=== PATIENT | male | born 1945 | race Caucasian/White ===

== ENCOUNTER 2017-07-13 21:31 | Inpatient (IN) | payer MEDICARE ==
[~2017-07-13] VITALS: Ht 182.9 cm; Wt 103.9 kg
[2017-07-13 22:00] VITALS: BP 157/97
[2017-07-13] MEDS ORDERED: LORAZEPAM 0.5 MG TABLET PO PRN (22:30)
[2017-07-13] MEDS ORDERED: MAG HYDROX/AL HYDROX/SIMETH 30 ML UDC PO PRN (22:30)
[2017-07-13] MEDS ORDERED: MAGNESIUM HYDROXIDE 30 ML UDC PO PRN (22:30)
[2017-07-13] MEDS ORDERED: ACETAMINOPHEN 325 MG TABLET PO PRN (22:30)
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
[2017-07-14] MEDS ORDERED: ALIR150P SQ (00:23)
[2017-07-14] MEDS ORDERED: TAMS0.4C34 PO (00:23)
[2017-07-14] MEDS ORDERED: CLOP75TA15 PO (00:23)
[2017-07-14] MEDS ORDERED: ALPR0.5T8 PO (00:23)
[2017-07-14] MEDS ORDERED: TOPI100T38 PO (00:23)
[2017-07-14] MEDS ORDERED: ALLO300T2 PO (00:23)
[2017-07-14] MEDS ORDERED: LOSA50TA21 PO (00:23)
[2017-07-14] MEDS ORDERED: LITH300T PO (00:23)
--- NOTE | 2017-07-14 00:25 | NUR ---
PAGED DR. MALIK SIMON, RE: MED RECONCILIATION
--- NOTE | 2017-07-14 05:34 | NUR ---
Spoke to dr. jose conrad around 0100, re: Med Recon, she stated, "I did."
--- NOTE | 2017-07-14 05:53 | NUR ---
PATIENT REFUSED, PERSONAL PHOTO, MED RECONCILIATION AND MRSA SCREEN, PATIENT STATED, " OH COMMON, I DID NOT SLEEP LAST NIGHT, 9 O'CLOCK."
--- NOTE | 2017-07-14 05:56 | NUR ---
PATIENT REFUSED BLOOD DRAW AT THIS TIME.
[2017-07-14 08:34] VITALS: BP 122/74
[2017-07-14 09:23] LABS: BASOPHILS % (AUTO) 0.5 % (0.0-2.0); EOSINOPHILS # (AUTO) 0.2 /CMM (0.0-0.7); EOSINOPHILS % (AUTO) 3.4 % (0.0-6.0); HEMATOCRIT 39 % (39-51); HEMOGLOBIN 13.3 g/dL (13.5-17.5); LYMPHOCYTES # (AUTO) 1.4 /CMM (0.8-4.8); LYMPHOCYTES % (AUTO) 25.1 % (20.0-44.0); MEAN CORPUSCULAR HEMOGLOBIN 33 PG (26.0-33.0); MEAN CORPUSCULAR HGB CONC 34 g/dl (31.0-36.0); MEAN CORPUSCULAR VOLUME 97 fL (80-96); MONOCYTES # (AUTO) 0.3 /CMM (0.1-1.30); MONOCYTES % (AUTO) 5.4 % (2.0-12.0); NEUTROPHILS # (AUTO) 3.6 /CMM (1.8-8.9); NEUTROPHILS % (AUTO) 65.6 % (43.0-81.0); PLATELET COUNT (AUTO) 273 /CMM (150-450); RED BLOOD CELL COUNT(AUTO) 4.01 MIL/uL (4.5-6.0); WHITE BLOOD COUNT (AUTO) 5.5 K/uL (4.3-11.0)
[2017-07-14 09:58] LABS: ALANINE AMINOTRANSFERASE 20 U/L (12-78); ALBUMIN 3.5 g/dL (3.4-5.0); ALKALINE PHOSPHATASE 68 U/L (46-116); ASPARTATE AMINOTRANSFERASE 16 U/L (15-37); BILIRUBIN,TOTAL 0.6 mg/dL (0.2-1.0); CALCIUM, SERUM 8.9 mg/dL (8.5-10.1); CARBON DIOXIDE 20 mmol/L (21-32); CHLORIDE 108 mmol/L (98-107); GLUCOSE 96 mg/dL (74-106); POTASSIUM 3.8 mmol/L (3.5-5.1); SODIUM SERUM 138 mmol/L (136-145); UREA NITROGEN, BLOOD 13 mg/dL (7-18)
[2017-07-14 10:01] LABS: CHOLESTEROL 112 mg/dL (<200); HDL CHOLESTEROL 59 mg/dL (40-60); LDL 48 mg/dL (0-99); TRIGLYCERIDES 79 mg/dL (30-150)
[2017-07-14] MEDS: LITHIUM CARBONATE (300 MG CAP) 300 MG CAPSULE PO SCH ×2 (13:00→17:00)
[2017-07-14] MEDS: QUETIAPINE FUMARATE 25 MG TABLET PO SCH (17:00)
[2017-07-14 19:33] VITALS: BP 141/89
[2017-07-14] MEDS: TOPIRAMATE 100 MG TABLET PO SCH (21:00)
--- NOTE | 2017-07-14 23:05 | NUR ---
GPS RN NOTES PT. REFUSED NIGHT MEDS TOPAMAX 100 MG ENCOURAGED X 3 EXPLIANED RISKS AND BENEFITS, PT. STILL REFUSED
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
[2017-07-15 08:00] VITALS: BP 130/78
[2017-07-15] MEDS: CLOPIDOGREL BISULFATE 75 MG TABLET PO SCH (09:00)
[2017-07-15] MEDS: TOPIRAMATE 100 MG TABLET PO SCH ×2 (09:00→21:00)
[2017-07-15] MEDS: LOSARTAN POTASSIUM 50 MG TABLET PO SCH (09:00)
[2017-07-15] MEDS: ALLOPURINOL 100 MG TABLET PO SCH (09:00)
[2017-07-15] MEDS: LITHIUM CARBONATE (300 MG CAP) 300 MG CAPSULE PO SCH ×4 (09:00→16:37)
[2017-07-15] MEDS: TAMSULOSIN 0.4 MG CAP.SR.24H PO SCH (09:00)
[2017-07-15] MEDS: QUETIAPINE FUMARATE 25 MG TABLET PO SCH ×5 (09:02→21:06)
--- NOTE | 2017-07-15 09:12 | NUR ---
[id number]: PT REFUSED TO TAKE MORNING MEDICATIONS, EVEN THOUGH ENCOURAGE PT TO BE COMPLAINT WITH MEDICATIONS. PT STILL REFUSED TO TAKE MEDICATIONS OR BE SEEN BY A WOUND NURSE.
--- NOTE | 2017-07-15 10:26 | NUR ---
[id number]: NOTIFIED DR. GRANADO THAT PT IS COMPLAINING OF LEFT CLAVICLE PAIN AND DISCOMFORT. DR. GRANADO ORDERED X-RAY OF LEFT CLAVICLE.
[2017-07-15] MEDS ORDERED: LITHIUM CARBONATE (300 MG CAP) 300 MG CAPSULE PO ONE (10:30)
--- NOTE | 2017-07-15 11:57 | NUR ---
[id number]: NOTIFIED DR. GRANADO ABOUT X-RAY OF LEFT CLAVICLE: NO ACUTE BONY ABNORMALITY AND MILD TO MODERATE OSTEOARTHROSIS OF THE ACROMIOCLAVICULAR JOINT. PENDING RETURN PHONE CALL.
[2017-07-15 16:00] VITALS: BP 146/81
--- NOTE | 2017-07-15 16:27 | NUR ---
Initial Discharge Note: Patient [place] [address] and wishes to return upon discharge. SW spoke with patient's , Claire Morales [phone]. Claire stated that she had concerns about patient returning home and that she has a pending restraining order against patient. However, Claire stated that if patient is stable and is compliant with medication, then she will discontinue the order. Claire stated that, ultimately, she does want patient home. SW to follow up with MD and to form a safe and proper discharge.
[2017-07-15 19:52] VITALS: BP 132/80
--- NOTE | 2017-07-15 20:44 | NUR ---
GPS RN NOTES PT. REFUSED SKIN REASSESSMENT AND BODY CHECK ENCOURAGED X 3 EXPLIANED RISKS AND BENEFITS, PT. STILL REFUSED
[2017-07-15] MEDS: ZOLPIDEM TARTRATE 5 MG TABLET PO PRN (21:49)
--- NOTE | 2017-07-15 22:00 | NUR ---
GPS RN NOTES PT. REFUSED NIGHT MEDS TOPAMAX 100 MG ENCOURAGED X 3 EXPLIANED RISKS AND BENEFITS, PT. STILL REFUSED
[2017-07-16 07:52] VITALS: BP 120/78
[2017-07-16] MEDS: LOSARTAN POTASSIUM 50 MG TABLET PO SCH (08:40)
[2017-07-16] MEDS: TOPIRAMATE 100 MG TABLET PO SCH (08:42)
[2017-07-16] MEDS: QUETIAPINE FUMARATE 25 MG TABLET PO SCH ×4 (08:42→21:14)
[2017-07-16] MEDS: TAMSULOSIN 0.4 MG CAP.SR.24H PO SCH (08:42)
[2017-07-16] MEDS: LITHIUM CARBONATE (300 MG CAP) 300 MG CAPSULE PO SCH ×3 (08:42→16:28)
[2017-07-16] MEDS: CLOPIDOGREL BISULFATE 75 MG TABLET PO SCH (08:42)
--- NOTE | 2017-07-16 08:42 | NUR ---
[id number]: PT REFUSED TO TAKE COZAAR 50 MG, FLOMAX 0.4 MG, PLAVIX 75 MG, ALLOPURINOL 300 MG. EVEN AFTER ENCOURAGE PT TO TAKE 3X AND EXPLAINED BENEFITS AND RISK, PT STILL REFUSED.
[2017-07-16] MEDS: ALLOPURINOL 100 MG TABLET PO SCH (08:44)
--- NOTE | 2017-07-16 09:39 | NUR ---
[id number]: NOTIFIED DR. GRANADO ABOUT PT'S REQUEST TO CHANGE DIET FROM CARDIAC DIET TO REGULAR DIET BECAUSE PT STATED, "I LOST 70 POUND AND NO LONGER HYPERTENSIVE." DR. GRANADO ORDERED REGULAR DIET
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
--- NOTE | 2017-07-16 10:23 | NUR ---
Discharge Planning: RICKY received a voicemail from patient's , Claire Morales [phone]. SW called Claire back and informed her that patient signed a voluntary stay form. SW explained the nature of the voluntary stay to patient's . was in agreement, but expressed that she wanted patient to stay for a couple of weeks. SW explained that, because patient is voluntary, he could leave at any time. However, it would be against medical advice and that the treatment team [psychiatrist, psychologist, nurse staff, social media strategist] have made several recommendations for patient to stay for at least a week. SW stated that it is a good sign that patient has signed the voluntary stay paperwork and that, right now, it has to be taken day by day. stated that she understood.
--- NOTE | 2017-07-16 10:58 | NUR ---
[id number]: DR. GRANADO ORDERED PHYSICIAN CONSULT FOR DR. HENRY TO SEE FOREHEAD HEALED WOUND. DR. GRANADO WILL CALL DR. HENRY.
--- NOTE | 2017-07-16 11:41 | NUR ---
[id number]: NOTIFIED DR. SONI FOR PHYSICIAN CONSULT PLACED BY DR. ROCKWELL DUE TO NEW EPISODES OF MANIC.
[2017-07-16 16:00] VITALS: BP 120/78
--- NOTE | 2017-07-16 19:30 | NUR ---
GPS RN NOTE, RECEIVED PATIENT AWAKE AND IN BED, NO S/S OR COMPLAINTS OF PAIN AT THIS TIME. PATIENT IS DISPLAYING NO S/S OF APPARENT DISTRESS AT THIS TIME. PATIENT BREATHING IS UNLABORED WITH EQUAL RISE AND FALL OF THE CHEST. PATIENT IS ALERT AND ORIENTED X 4 ON ROOM AIR WITH A SPO2 98 %. PATIENT IS MED SELECTIVE, DISORGANIZED, ANXIOUS, DEMANDING, AND NEEDS REORIENTATION. PATIENT DENIES SUICIDE IDEATIONS AND HOMICIDAL IDEATIONS AT THIS TIME. PATIENT ASSISTED WITH TURNING AND REPOSITIONING Q2HR AND PRN FOR COMFORT AND CIRCULATION. PATIENT HAS NO NEEDS AT THIS TIME. PATIENT EDUCATED ON THE USE OF THE CALL [place]. PATIENT BED SIDE RAILS ARE UP X 2 FOR SAFETY, BED IS LOCKED AND LOW WILL CONTINUE TO MONITOR Q 15 MIN AND MAINTAIN SAFETY WITH THE HELP OF STAFF.
[2017-07-16 19:51] VITALS: BP 146/86
[2017-07-16] MEDS: ZOLPIDEM TARTRATE 5 MG TABLET PO PRN (21:15)
--- NOTE | 2017-07-16 21:15 | NUR ---
GPS RN NOTE, PATIENT HAS A COMPLAINT OF NOT BEING ABLE TO SLEEP AND IS REQUESTING AMBIEN AT THIS TIME. PATIENT VITAL SIGNS ARE STABLE. GAVE AMBIEN 5MG PO HS ORDERED. WILL REASSESS FOR INSOMNIA AND I WILL CONTINUE TO MONITOR THIS PATIENT.
[2017-07-17 08:00] VITALS: BP 124/84
[2017-07-17] MEDS: CLOPIDOGREL BISULFATE 75 MG TABLET PO SCH (09:10)
[2017-07-17] MEDS: QUETIAPINE FUMARATE 25 MG TABLET PO SCH ×2 (09:10→21:02)
[2017-07-17] MEDS: TAMSULOSIN 0.4 MG CAP.SR.24H PO SCH (09:10)
[2017-07-17] MEDS: LOSARTAN POTASSIUM 50 MG TABLET PO SCH (09:11)
[2017-07-17] MEDS: ALLOPURINOL 100 MG TABLET PO SCH (09:11)
[2017-07-17] MEDS: LITHIUM CARBONATE (300 MG CAP) 300 MG CAPSULE PO SCH ×3 (09:11→17:32)
[2017-07-17 16:00] VITALS: BP 122/76
--- NOTE | 2017-07-17 18:34 | NUR ---
GPS/RN-NOTES PATIENT C/O GENERALIZED BODY PAIN AND REQUESTING FOR TYLENOL, TYLENOL 650MG P.O GIVEN PRN ORDER WILL CONT. MOTORING FOR SAFETY.
[2017-07-17 20:07] VITALS: BP 143/90
[2017-07-17] MEDS: ZOLPIDEM TARTRATE 5 MG TABLET PO PRN (22:09)
--- NOTE | 2017-07-18 07:14 | NUR ---
GPS RN NOTES PT. REFUSED AM LABS , PER PT. MAY LATER, ENDORSE TO COMING SHIFT FOR CONTINUITY OF CARE.
[2017-07-18 08:00] VITALS: BP 130/80
[2017-07-18] MEDS ORDERED: QUETIAPINE FUMARATE 25 MG TABLET PO SCH (09:00)
[2017-07-18] MEDS: ALLOPURINOL 100 MG TABLET PO SCH (10:18)
[2017-07-18] MEDS: LOSARTAN POTASSIUM 50 MG TABLET PO SCH (10:18)
[2017-07-18] MEDS: TAMSULOSIN 0.4 MG CAP.SR.24H PO SCH (10:18)
[2017-07-18] MEDS: CLOPIDOGREL BISULFATE 75 MG TABLET PO SCH (10:19)
[2017-07-18] MEDS: LITHIUM CARBONATE (300 MG CAP) 300 MG CAPSULE PO SCH ×3 (10:19→16:29)
--- NOTE | 2017-07-18 13:01 | NUR ---
GPS/RN PATIENT WAS SEEN BY ORTEGA CADET 07/17/17 HOWEVER, PATIENT IS STATING THAT HE WOULD LIKE TO SEE DR HENRY, SPOKE WITH SANITARY AIDE AT DR HENRY'S OFFICE REGARDING REQUEST, AWAITING CALL BACK.
--- NOTE | 2017-07-18 14:34 | NUR ---
Discharge Planning: RICKY received a voicemail from patient's Claire Morales [phone]. Claire stated that she wanted an updated on her . RICKY called and spoke with patient's Claire Morales [phone]. SW provided updates on patient and informed Claire that the discharge was planned for Saturday.
[2017-07-18 15:41] VITALS: BP 122/80
[2017-07-18 20:00] VITALS: BP 109/73
[2017-07-18] MEDS: QUETIAPINE FUMARATE 25 MG TABLET PO SCH (21:02)
--- NOTE | 2017-07-18 21:13 | NUR ---
, BRYAN CALLED, PATIENT HAS GONE SLEEPING AT THIS TIME, LIGHTS OFF INSIDE HIS ROOM, DOOR CLOSED. KEPT THE DOOR AJAR.
[2017-07-19 08:00] VITALS: BP 120/83
[2017-07-19] MEDS: LITHIUM CARBONATE (300 MG CAP) 300 MG CAPSULE PO SCH ×2 (08:29→13:00)
[2017-07-19] MEDS: TAMSULOSIN 0.4 MG CAP.SR.24H PO SCH (08:30)
[2017-07-19] MEDS: ALLOPURINOL 100 MG TABLET PO SCH (08:30)
[2017-07-19] MEDS: LOSARTAN POTASSIUM 50 MG TABLET PO SCH (08:30)
[2017-07-19] MEDS: CLOPIDOGREL BISULFATE 75 MG TABLET PO SCH (08:30)
--- NOTE | 2017-07-19 11:41 | NUR ---
Discharge Note: Patient to discharge home to [address] [place] [address]. Patient to be picked up by personal security specialist. Patients Claire [phone] is aware of the discharge. Upon discharge, patient is alert and oriented x4. Patient denies visual and auditory hallucinations. Patient denies any suicidal and homicidal ideation. Patient states that he is glad to be going home with his . Patient will follow up with his patient transporter, Dr. Liu [address], [place] [address] / [phone]. Patient will also see a psychiatrist and psychologist at [facility] [address], [place] . Patient requested this particular organization, as he had worked with them before. Patients confirmed this. SW called and left a voicemail in an attempt to confirm an appointment day for patient. Patient stated that he will also call and make his appointment. Patients agreed to help him in doing this.
[2017-07-19 13:00] VITALS: BP 118/68
--- NOTE | 2017-07-19 13:18 | NUR ---
pt is discharge by Dr. Manrique. Urologic Surgeon agrees with discharge plan. Pt going home. Pt's , Claire, is aware. Pt is alert oriented x 3 and ambulatory. he is calm and cooperative. denies s/i and/or h/i at time of discharge. no acute distress noted. Pt refuse skin assessment. prescription for both psych and medical has been prescribed. belongings returned to patient. exitcare summary completed. pt has his own personal transportation to his destination. pt left in stable condition.
== END 2017-07-19 13:05 | disposition home or self-care (01) | DRG 885 ==
LOC: GPS 21:31
PROVIDERS: ADMIT Psychiatry & Neurology Psychiatry; ATTEND Psychiatry & Neurology Psychiatry
DX: F31.2 Bipolar disorder, current episode manic severe with psychotic features (principal); F29 Unspecified psychosis not due to a substance or known physiological condition; F39 Unspecified mood [affective] disorder; Z73.6 Limitation of activities due to disability; F41.9 Anxiety disorder, unspecified; I10 Essential (primary) hypertension; I25.10 Atherosclerotic heart disease of native coronary artery without angina pectoris; M10.9 Gout, unspecified; Z79.899 Other long term (current) drug therapy; R23.4 Changes in skin texture; S01.112S Laceration without foreign body of left eyelid and periocular area, sequela; X58.XXXS Exposure to other specified factors, sequela
CPT/HCPCS: 36415; 73000-TC; 80053-TC; 80061-TC; 85025-TC